=== PATIENT | female | born 1965 | race Caucasian/White ===

== ENCOUNTER 2021-10-12 06:13 | Observation (INO) | payer MEDICARE, OTHER ==
[2021-10-12] MEDS ORDERED: ANTIVERT 25 MG PO ONE (06:47)
[2021-10-12] MEDS ORDERED: ANTIVERT 25 MG ONE (06:48)
--- NOTE | 2021-10-12 06:53 | ERPHSYRPT ---
- History of Present Illness Source: patient Exam Limitations: no limitations Patient Subjective Stated Complaint: pt states for the past 4 months she has been having episodes of dizziness and vomiting. states this is the 3rd time she has been this sick. Triage Nursing Assessment: pt alert and oriented, answers questions approp. pt ambulatory with slow steady gait noted. respirations nonlabored with lungs cta. skin warm and dry. pupils equal and reactive. bilat upper and lower ext strength equal and wnl. Timing/Duration: day(s) (2 days) Severity: moderate Baseline/Normal Cognition: alert oriented x 3 Current Cognition: alert oriented x 3 Baseline Gait: walks w/o assistance Associated Symptoms: nausea, vomiting, No confusion, No fatigue, No fever, No chills, No loss of consciousness, No weakness, No insomnia, No muscle spasms, No numbness/tingling in legs/feet, No paresthesia, No ringing in ears, No seizures, No slurred speech, No trouble walking, No vision changes, No chest pain, No headache Hx Tetanus, Diphtheria Vaccination/Date Given: No Hx Influenza Vaccination/Date Given: No Hx Pneumococcal Vaccination/Date Given: No Immunizations Up to Date: No <JERMAIN ERAZO - Last Filed: 10/12/21 06:47> <AMAYA SÁNCHEZ - Last Filed: 10/12/21 22:14> - History of Present Illness Physician History: 56 yo wf w dizziness x 2 days. Pt has been having similar episodes since 06/11. She has had N/V w the dizziness. Pt denies chest pain but has been somewhat dyspneic. Otalgia/hearing loss/fever/cough/melena/hematochezia/headache are all denied. She has not seen her PCP about the problem. (JERMAIN ERAZO) Allergies/Adverse Reactions: Penicillins Allergy (Intermediate, Verified 10/12/21 06:35) Hives Home Medications: Citalopram Hydrobromide [Celexa] 40 mg PO QHS 10/12/21 [History] Ibuprofen 200 mg [Motrin 200 mg] 200 mg PO Q6HPRN PRN 10/12/21 [History] Omeprazole 40 mg PO QHS 10/12/21 [History] Travel Risk - International Travel Have you traveled outside of the country in past 3 weeks: No - Coronavirus Screening Are you exhibiting any of the following symptoms?: No Close contact with a COVID-19 positive Pt in past 14-21 Days: No - Vaccine Status Have you recieved a Covid-19 vaccination: No <JERMAIN ERAZO - Last Filed: 10/12/21 06:47> - Review of Systems Constitutional: No Symptoms Eyes: No Symptoms Ears, Nose, & Throat: No Symptoms Respiratory: No Symptoms, Dyspnea Cardiac: No Symptoms Abdominal/Gastrointestinal: No Symptoms Genitourinary Symptoms: No Symptoms Musculoskeletal: No Symptoms Skin: No Symptoms Neurological: No Symptoms, Dizziness Psychological: No Symptoms Endocrine: No Symptoms Hematologic/Lymphatic: No Symptoms Immunological/Allergic: No Symptoms <JERMAIN ERAZO - Last Filed: 10/12/21 06:47> - Past Medical History Pertinent Past Medical History: No - Past Surgical History Past Surgical History: Yes Other Surgical History: ear surgery for perfed ear drum - Social History Smoking Status: Former smoker Exposure to second hand smoke: No Drug Use: none Patient Lives Alone: No Significant Family History: no pertinent family hx <JERMAIN ERAZO - Last Filed: 10/12/21 06:47> - Marlene Coma Scale Best Eye Response (Carson): (4) open spontaneously Best Verbal Response (Marlene): (5) oriented Best Motor Response (Carson): (6) obeys commands Marlene Total: 15 - Physical Exam General Appearance: no apparent distress Eye Exam: bilateral eye: normal inspection, PERRL, EOMI Ears, Nose, Throat Exam: normal ENT inspection, pharynx normal, moist mucous membranes, TM abnormal (L) (L TM occluded by cerumen) Neck Exam: normal inspection, non-tender, supple, full range of motion, No meningismus, No mass, No Brudzinski, No Kernig's, No carotid bruit Respiratory: normal breath sounds, lungs clear, airway intact Cardiovascular: regular rate/rhythm, normal heart sounds, normal peripheral pulses, No murmur Gastrointestinal: soft, normal bowel sounds, No tenderness Back Exam: normal inspection, normal range of motion, No CVA tenderness, No vertebral tenderness Extremity Exam: normal inspection, normal range of motion Peripheral Pulses: carotid (R): 2+, carotid (L): 2+ Mental Status: alert, oriented x 3, 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 Exam: normal hearing, normal speech, PERRL Coordination/Gait: normal cerebellar function, negative Romberg's sign Motor/Sensory: no motor deficit, no sensory deficit, no pronator drift, negative Babinski's sign DTR: bicep (R): 2+, bicep (L): 2+ Skin Exam: normal color, warm, dry SpO2 Interpretation: normal SpO2: 98 O2 Delivery: Room Air <JERMAIN ERAZO - Last Filed: 10/12/21 06:47> - Nursing Vital Signs Nursing Vital Signs: Initial Vital Signs Temperature 97.3 F 10/12/21 06:21 Pulse Rate 91 H 10/12/21 06:21 Respiratory Rate 16 10/12/21 06:21 Blood Pressure 160/87 10/12/21 06:21 O2 Sat by Pulse Oximetry 98 10/12/21 06:21 Pain Scale Pain Intensity 0 - Course Nursing assessment & vital signs reviewed: Yes EKG Interpreted by Me: RATE (NSR/Rate 82/Prolonged QTc/Nonspecific Twave abnormality) <JERMAIN ERAZO - Last Filed: 10/12/21 06:47> Ordered Tests: Active Orders 24 hr Category Date Time Status Bedrest ROUTINE Activity 10/12/21 11:22 Active Up With Assistance ROUTINE Activity 10/12/21 11:22 Active Code Status Order ROUTINE Care 10/12/21 11:22 Active EKG-ER Only STAT Care 10/12/21 06:45 Completed Fall Protocol Q1H Care 10/12/21 11:22 Active IV Care Q6H Care 10/12/21 11:22 Active IV Insertion-2nd Peripheral STAT Care 10/12/21 08:43 Completed Neuro Checks Q4H Care 10/12/21 11:22 Active Orthostatic Vital Signs STAT Care 10/12/21 07:[address] in Observation ROUTINE Care 10/12/21 11:22 Active Weight,Daily 0600 Care 10/12/21 11:22 Active CHEST 1 VIEW (PORTABLE) Stat Exams 10/12/21 07:48 Taken HEAD WITHOUT CONTRAST [CT] Stat Exams 10/12/21 06:46 Completed CBC W DIFF AM.LAB Lab 10/13/21 04:00 Ordered CBC W DIFF Stat Lab 10/12/21 07:05 Completed CMP AM.LAB Lab 10/13/21 04:00 Ordered CMP Stat Lab 10/12/21 07:05 Completed FECAL OCCULT BLOOD - SCREENING Stat Lab 10/12/21 08:43 Ordered MAGNESIUM Stat Lab 10/12/21 07:05 Completed NT PRO BNP Stat Lab 10/12/21 07:05 Completed TROPONIN Q3H Lab 10/12/21 07:05 Completed TROPONIN Q3H Lab 10/12/21 08:55 Completed TROPONIN Q3H Lab 10/12/21 13:10 Completed Transfer Order Routine Transfer 10/12/21 Completed Medication Summary Generic Name Dose Route Start Last Admin Trade Name Frefide PRN Reason Stop Dose Admin Acetaminophen 650 mg 10/12/21 11:22 Acetaminophen 325 Mg Tablet PO 11/11/21 11:21 Q4H PRN PRN PAIN AND/OR FEVER Citalopram Hydrobromide 40 mg 10/12/21 22:00 10/12/21 21:32 Citalopram Hydrobromide 20 Mg Tablet PO 11/11/21 21:59 40 mg QHS EBER Administration Furosemide 20 mg 10/12/21 11:22 10/12/21 15:06 Furosemide 20 Mg/Vial IV 11/11/21 11:21 20 mg BETWEEN UNITS EBER Administration Pantoprazole Sodium 80 mg/ 500 mls @ 50 mls/hr 10/12/21 08:45 10/12/21 19:34 Sodium Chloride IV 11/11/21 08:44 50 mls/hr .Q10H EBER 50 mls/hr Administration Ondansetron HCl 4 mg 10/12/21 11:22 Ondansetron Hcl 4 Mg/2 Ml Vial IV 11/11/21 11:21 Q6H PRN PRN NAUSEA/VOMITING Pantoprazole Sodium 40 mg 10/12/21 22:00 Protonix (Pantoprazole) 40 Mg Tablet PO 11/11/21 21:59 QHS EBER Discontinued Medications Generic Name Dose Route Start Last Admin Trade Name Freq PRN Reason Stop Dose Admin Albuterol/Ipratropium 3 ml 10/12/21 11:22 Ipratropium/Albuterol Sulfate 3 Ml Ampul.Neb IH 11/11/21 11:21 Q4HPRN PRN SHORTNESS OF BREATH/WHEEZING Sodium Chloride 1,000 mls @ 999 mls/hr 10/12/21 07:48 10/12/21 09:20 Sodium Chloride 0.9% 1000 Ml IV 10/12/21 08:48 Infused .Q1H1M STA Infusion Sodium Chloride Confirm 10/12/21 07:57 Sodium Chloride 0.9% 1000 Ml Administered 10/12/21 07:58 Dose 1,000 mls @ ud .ROUTE .STK-MED ONE Sodium Chloride Confirm 10/12/21 08:50 Sodium Chloride 0.9% 500 Ml Administered 10/12/21 08:51 Dose 500 mls @ ud IV .STK-MED ONE Sodium Chloride Confirm 10/12/21 10:29 Sodium Chloride 0.9% 1000 Ml Administered 10/12/21 10:30 Dose 1,000 mls @ ud .ROUTE .STK-MED ONE Meclizine HCl 25 mg 10/12/21 06:47 10/12/21 06:48 Meclizine Hcl 25 Mg Tablet PO 10/12/21 06:48 25 mg STAT ONE Administration Meclizine HCl Confirm 10/12/21 06:48 Meclizine Hcl 25 Mg Tablet Administered 10/12/21 06:49 Dose 25 mg .ROUTE .STK-MED ONE Pantoprazole Sodium 40 mg 10/12/21 08:43 10/12/21 09:06 Pantoprazole 40 Mg Vial IV 10/12/21 08:44 40 mg STAT ONE Administration Pantoprazole Sodium Confirm 10/12/21 08:50 Pantoprazole 40 Mg Vial Administered 10/12/21 08:51 Dose 40 mg IV .STK-MED ONE Pantoprazole Sodium Confirm 10/12/21 08:55 Pantoprazole 40 Mg Vial Administered 10/12/21 08:56 Dose 40 mg IV .STK-MED ONE Pantoprazole Sodium Confirm 10/12/21 09:04 Pantoprazole 40 Mg Vial Administered 10/12/21 09:05 Dose 40 mg IV .STK-MED ONE Lab/Rad Data: Laboratory Result Diagrams 10/12/21 07:05 10/12/21 07:05 Laboratory Results 10/12/21 10/12/21 10/12/21 Range/Units 09:00 08:55 08:55 WBC (4.0-10.5) K/mm3 RBC (4.1-5.4) M/mm3 Hgb (12.0-16.0) gm/dl Hct (35-47) % MCV (78-100) fl MCH (26-32) pg MCHC (32-36) g/dl RDW (11.5-14.0) % Plt Count (150-450) K/mm3 MPV (7.5-11.0) fl Gran % (36.0-66.0) % Eos # (Auto) (0-0.5) Absolute Lymphs (auto) (1.0-4.6) Absolute Monos (auto) (0.0-1.3) Lymphocytes % (24.0-44.0) % Monocytes % (0.0-12.0) % Eosinophils % (0.00-5.0) % Basophils % (0.0-0.4) % Absolute Granulocytes (1.4-6.9) Basophils # (0-0.4) Sodium (137-145) mmol/L Potassium (3.5-5.1) mmol/L Chloride (98-107) mmol/L Carbon Dioxide (22-30) mmol/L Anion Gap (5-15) MEQ/L BUN (7-17) mg/dL Creatinine (0.52-1.04) mg/dL Estimated GFR ML/MIN Glucose (74-106) mg/dL Calcium (8.4-10.2) mg/dL Magnesium (1.6-2.3) mg/dL Total Bilirubin (0.2-1.3) mg/dL AST (14-36) U/L ALT (0-35) U/L Alkaline Phosphatase (38-126) U/L Troponin I (0.000-0.034) ng/mL NT-Pro-B Natriuret Pep (0-900) pg/mL Serum Total Protein (6.3-8.2) g/dL Albumin (3.5-5.0) g/dL Urinalys Dipstick Clnc Urine Color (YELLOW) Urine Appearance (CLEAR) Urine pH (5-6) Ur Specific [place] (1.005-1.025) POC Urine Protein Conf (Negative) Urine Ketones (NEGATIVE) Urine Nitrite (NEGATIVE) Urine Bilirubin (NEGATIVE) Urine Urobilinogen (0-1) mg/dL Urine Leukocytes (NEGATIVE) Urine WBC (Auto) (0-5) /HPF Urine RBC (Auto) (0-2) /HPF U Hyaline Cast (Auto) (0-2) /LPF U Epithel Cells (Auto) (FEW) /HPF Urine Bacteria (Auto) Urine RBC (0-5) Gama/ul Urine Mucus (Auto) (NEGATIVE) /HPF Ur Culture Indicated? Urine Glucose (NEGATIVE) mg/dL Influenza Type A Ag NEGATIVE (NEGATIVE) Influenza Type B Ag NEGATIVE (NEGATIVE) RSV (PCR) NEGATIVE (Negative) SARS-CoV-2 (PCR) NEGATIVE (NEGATIVE) Slides for Path Review ABO Group A Rh Factor POSITIVE Antibody Screen NEGATIVE (NEGATIVE) Crossmatch COMPATIBLE COMPATIBLE (COMPATIBLE) 10/12/21 10/12/21 10/12/21 Range/Units 08:55 07:05 07:05 WBC (4.0-10.5) K/mm3 RBC (4.1-5.4) M/mm3 Hgb (12.0-16.0) gm/dl Hct (35-47) % MCV (78-100) fl MCH (26-32) pg MCHC (32-36) g/dl RDW (11.5-14.0) % Plt Count (150-450) K/mm3 MPV (7.5-11.0) fl Gran % (36.0-66.0) % Eos # (Auto) (0-0.5) Absolute Lymphs (auto) (1.0-4.6) Absolute Monos (auto) (0.0-1.3) Lymphocytes % (24.0-44.0) % Monocytes % (0.0-12.0) % Eosinophils % (0.00-5.0) % Basophils % (0.0-0.4) % Absolute Granulocytes (1.4-6.9) Basophils # (0-0.4) Sodium (137-145) mmol/L Potassium (3.5-5.1) mmol/L Chloride (98-107) mmol/L Carbon Dioxide (22-30) mmol/L Anion Gap (5-15) MEQ/L BUN (7-17) mg/dL Creatinine (0.52-1.04) mg/dL Estimated GFR ML/MIN Glucose (74-106) mg/dL Calcium (8.4-10.2) mg/dL Magnesium 2.3 (1.6-2.3) mg/dL Total Bilirubin (0.2-1.3) mg/dL AST (14-36) U/L ALT (0-35) U/L Alkaline Phosphatase (38-126) U/L Troponin I < 0.012 (0.000-0.034) ng/mL NT-Pro-B Natriuret Pep 77.1 (0-900) pg/mL Serum Total Protein (6.3-8.2) g/dL Albumin (3.5-5.0) g/dL Urinalys Dipstick Clnc MAIN LAB Urine Color YELLOW (YELLOW) Urine Appearance CLEAR (CLEAR) Urine pH 5.5 (5-6) Ur Specific [place] >=1.030 (1.005-1.025) POC Urine Protein Conf 30 (Negative) Urine Ketones NEGATIVE (NEGATIVE) Urine Nitrite NEGATIVE (NEGATIVE) Urine Bilirubin NEGATIVE (NEGATIVE) Urine Urobilinogen 0.2 (0-1) mg/dL Urine Leukocytes NEGATIVE (NEGATIVE) Urine WBC (Auto) 3-5 (0-5) /HPF Urine RBC (Auto) NONE (0-2) /HPF U Hyaline Cast (Auto) 0-2 (0-2) /LPF U Epithel Cells (Auto) RARE (FEW) /HPF Urine Bacteria (Auto) Not Reportable Urine RBC NEGATIVE (0-5) Gama/ul Urine Mucus (Auto) SLIGHT (NEGATIVE) /HPF Ur Culture Indicated? NO Urine Glucose NEGATIVE (NEGATIVE) mg/dL Influenza Type A Ag (NEGATIVE) Influenza Type B Ag (NEGATIVE) RSV (PCR) (Negative) SARS-CoV-2 (PCR) (NEGATIVE) Slides for Path Review ABO Group Rh Factor Antibody Screen (NEGATIVE) Crossmatch (COMPATIBLE) 10/12/21 10/12/21 10/12/21 Range/Units 07:05 07:05 07:05 WBC 5.2 (4.0-10.5) K/mm3 RBC 3.75 L (4.1-5.4) M/mm3 Hgb 7.2 L (12.0-16.0) gm/dl Hct 26.2 L (35-47) % MCV 69.9 L (78-100) fl MCH 19.2 L (26-32) pg MCHC 27.5 L (32-36) g/dl RDW 20.8 H (11.5-14.0) % Plt Count 286 (150-450) K/mm3 MPV 9.3 (7.5-11.0) fl Gran % 69.6 H (36.0-66.0) % Eos # (Auto) 0.10 (0-0.5) Absolute Lymphs (auto) 1.08 (1.0-4.6) Absolute Monos (auto) 0.37 (0.0-1.3) Lymphocytes % 20.9 L (24.0-44.0) % Monocytes % 7.2 (0.0-12.0) % Eosinophils % 1.9 (0.00-5.0) % Basophils % 0.4 (0.0-0.4) % Absolute Granulocytes 3.60 (1.4-6.9) Basophils # 0.02 (0-0.4) Sodium 139 (137-145) mmol/L Potassium 3.9 (3.5-5.1) mmol/L Chloride 102 (98-107) mmol/L Carbon Dioxide 25 (22-30) mmol/L Anion Gap 15.4 H (5-15) MEQ/L BUN 9 (7-17) mg/dL Creatinine 0.79 (0.52-1.04) mg/dL Estimated GFR > 60.0 ML/MIN Glucose 112 H (74-106) mg/dL Calcium 8.8 (8.4-10.2) mg/dL Magnesium (1.6-2.3) mg/dL Total Bilirubin 0.30 (0.2-1.3) mg/dL AST 21 (14-36) U/L ALT 14 (0-35) U/L Alkaline Phosphatase 101 (38-126) U/L Troponin I < 0.012 (0.000-0.034) ng/mL NT-Pro-B Natriuret Pep (0-900) pg/mL Serum Total Protein 7.1 (6.3-8.2) g/dL Albumin 4.1 (3.5-5.0) g/dL Urinalys Dipstick Clnc Urine Color (YELLOW) Urine Appearance (CLEAR) Urine pH (5-6) Ur Specific [place] (1.005-1.025) POC Urine Protein Conf (Negative) Urine Ketones (NEGATIVE) Urine Nitrite (NEGATIVE) Urine Bilirubin (NEGATIVE) Urine Urobilinogen (0-1) mg/dL Urine Leukocytes (NEGATIVE) Urine WBC (Auto) (0-5) /HPF Urine RBC (Auto) (0-2) /HPF U Hyaline Cast (Auto) (0-2) /LPF U Epithel Cells (Auto) (FEW) /HPF Urine Bacteria (Auto) Urine RBC (0-5) Gama/ul Urine Mucus (Auto) (NEGATIVE) /HPF Ur Culture Indicated? Urine Glucose (NEGATIVE) mg/dL Influenza Type A Ag (NEGATIVE) Influenza Type B Ag (NEGATIVE) RSV (PCR) (Negative) SARS-CoV-2 (PCR) (NEGATIVE) Slides for Path Review YES ABO Group Rh Factor Antibody Screen (NEGATIVE) Crossmatch (COMPATIBLE) <JERMAIN ERAZO - Last Filed: 10/12/21 06:47> - Progress Progress: improved, re-examined Discussed with Dr.: Raoul Will see patient in: hospital (observation) Counseled pt/family regarding: lab results, diagnosis, rad results <AMAYA SÁNCHEZ - Last Filed: 10/12/21 22:14> - Progress Progress Note: 10/12/21 07:02 [address] turned over to Dr. Sánchez at 7:00AM (JERMAIN ERAZO) 10/12/21 08:45 neg. orthostatics, Hb 7.2 WITH NO PREVIOUS COMPARISON. GIVEN FLUIDS AND MECLIZINE WITH SOME RELIEF OF SYMPTOMS, HAS H/O GERD BUT NO MADY /HEMATOCHEZIA. CT HEAD NEGATIVE FOR ACUTE FINDINGS. EKG T WAVE CHANGES BUT NEGATIVE TROP. NO CP BUT OCCAISONAL SOB WITH ACTIVITIES. SX ARE PROBABLY SECONADR TO ANEMIA, STARTED ON PROTONIX, DISCUSSED RISK/BENIFITS OF TRANSFUSION AND SHE WANTS TO PROCEED WITH IT. 10/12/21 09:04 discuused with , recommeded surgery consult for posible EGD, continue with protonix, transfusiona nd 20mg iv lasix between the units. 10/12/21 11:[address] Leal, reviewed history and patient will be seen in consultation with hospitalist. (AMAYA SÁNCHEZ) <JERMAIN ERAZO - Last Filed: 10/12/21 06:47> - Departure Departure Disposition: Observation Critical Care Time: No <AMAYA SÁNCHEZ - Last Filed: 10/12/21 22:14> - Departure Clinical Impression: Symptomatic anemia Condition: Stable
[2021-10-12 07:14] LABS: Basophil (Absolute #) 0.02 (0-0.4); Eosinophil % 1.9 % (0.00-5.0); Hematocrit 26.2 % (35-47); Hemoglobin 7.2 gm/dl (12.0-16.0); Lymphocyte (Absolute #) 1.08 (1.0-4.6); Lymphocytes % 20.9 % (24.0-44.0); Mean Cell Volume 69.9 fl (78-100); Mean Corpuscular Hemoglobin 19.2 pg (26-32); Mean Corpuscular Hgb Concent. 27.5 g/dl (32-36); Mean Platelet Volume 9.3 fl (7.5-11.0); Monocyte (Absolute #) 0.37 (0.0-1.3); Monocytes % 7.2 % (0.0-12.0); Neutrophil % 69.6 % (36.0-66.0); Platelet Count 286 K/mm3 (150-450); Red Blood Count 3.75 M/mm3 (4.1-5.4); Red Cell Distribution Width 20.8 % (11.5-14.0); White Blood Count 5.2 K/mm3 (4.0-10.5)
[2021-10-12 07:27] LABS: ALBUMIN 4.1 g/dL (3.5-5.0); ALKALINE PHOSPHATASE 101 U/L (38-126); ANION GAP 15.4 MEQ/L (5-15); BLOOD UREA NITROGEN 9 mg/dL (7-17); CHLORIDE 102 mmol/L (98-107); Calcium 8.8 mg/dL (8.4-10.2); Carbon Dioxide 25 mmol/L (22-30); Creatinine 1 0.79 mg/dL (0.52-1.04); EST GLOMERULAR FILTRATION RATE > 60.0 ML/MIN; Glucose 112 mg/dL (74-106); Potassium 3.9 mmol/L (3.5-5.1); SGOT/AST 21 U/L (14-36); SGPT/ALT 14 U/L (0-35); SODIUM 139 mmol/L (137-145); Total Protein 7.1 g/dL (6.3-8.2)
[2021-10-12] MEDS ORDERED: Sodium Chloride 0.9% 1000 ML 1,000 ML IV STA (07:48)
[2021-10-12 07:57] LABS: Appearance CLEAR (CLEAR); Bilirubin NEGATIVE (NEGATIVE); Dipstick done @ ? MAIN LAB; Glucose NEGATIVE (NEGATIVE); Ketones NEGATIVE (NEGATIVE); Nitrite NEGATIVE (NEGATIVE); Ph 5.5 (5-6); Protein,Urine Dip 30 (Negative); RBC NEGATIVE Ery/ul (0-5); Specific Gravity >=1.030 (1.005-1.025); Urobilinogen 0.2 mg/dL (0-1)
[2021-10-12] MEDS ORDERED: Sodium Chloride 0.9% 1000 ML 1,000 ML ONE ×2 (07:57→10:29)
[2021-10-12 07:58] LABS: Epithelial Cells RARE /HPF (FEW); Hyaline Casts 0-2 /LPF (0-2); Mucus SLIGHT /HPF (NEGATIVE)
[2021-10-12 07:59] LABS: Urine Cultured Indicated? NO
[2021-10-12 08:07] LABS: MAGNESIUM 2.3 mg/dL (1.6-2.3); NT PRO BNP 77.1 pg/mL (0-900)
[2021-10-12] MEDS ORDERED: PROTONIX 40 MG IV IV ONE ×4 (08:43→09:04)
[2021-10-12] MEDS ORDERED: Sodium Chloride 0.9% 500 ML 500 ML IV ONE (08:50)
--- NOTE | 2021-10-12 08:50 | XRAY ---
Indication: Dizziness, nausea, and vomiting 2 days. Multiple contiguous axial images obtained through the head without contrast. Comparison: None Age-appropriate global atrophy with minimal periventricular degenerative microischemia bilaterally. No acute intracranial hemorrhage, abnormal extra-axial fluid collection, or mass effect. Fourth ventricle is midline without hydrocephalus. Hennessy-white matter differentiation is preserved. Bony calvarium intact. Visualized paranasal sinuses and mastoid air cells are clear. Impression: Atrophy and degenerative microischemia within normal limits for patient's age. No acute intracranial abnormalities. Comment: Preliminary interpretation made by [facility]. No critical discrepancy.
[2021-10-12] MEDS: PROTONIX 40 MG IV*** 80 MG in Sodium Chloride 0.9% 500 ML 500 ML IV SCH ×2 (08:57→19:34)
[2021-10-12 10:28] LABS: ABO TYPING A; Antibody Screen NEGATIVE (NEGATIVE); RH TYPING POSITIVE
[2021-10-12 10:29] LABS: CROSS MATCH (PRBC) COMPATIBLE (COMPATIBLE)
[2021-10-12 10:48] LABS: INFLUENZA A NEGATIVE (NEGATIVE); INFLUENZA B NEGATIVE (NEGATIVE); RESPIRATORY SYNCTIAL VIRUS NEGATIVE (Negative); SARS-CoV-2 Xpert Express NEGATIVE (NEGATIVE)
[2021-10-12] MEDS ORDERED: Zofran 4 MG/2 ML VIAL IV PRN (11:22)
[2021-10-12] MEDS ORDERED: DUONEB 0.5-3 MG/3 ml Neb IH PRN (11:22)
[2021-10-12] MEDS ORDERED: TYLENOL 325 MG PO PRN (11:22)
[2021-10-12] MEDS ORDERED: Lasix 20 MG/2 ML IV SCH (11:22)
--- NOTE | 2021-10-12 12:32 | PCM.BN ---
Brief Admission Note - Admission Note Brief Admisson Note: Patient admitted @ 10/12/21 11:21 to MED SURG.She agrees to receive 2 units PRBC Gen Surg notified of suspected UGI bleed but stable at present. I spoke to Dr Valentín Leal and since patient is stable plans outpatient evaluation. No stool for hemetest yet. Medication List reviewed and reconciled.
[2021-10-12 14:14] LABS: Slide Review 1 YES
[2021-10-12 18:49] LABS: Hematocrit 33.5 % (35-47); Hemoglobin 10.2 gm/dl (12.0-16.0)
[2021-10-12] MEDS ORDERED: NON-FORMULARY ITEM (Omeprazole [Omeprazole] 40 MG Capsule.Dr) PO SCH (22:00)
[2021-10-12] MEDS ORDERED: Protonix 40MG Tablet PO SCH (22:00)
[2021-10-12] MEDS ORDERED: NON-FORMULARY ITEM (Citalopram Hydrobromide [Celexa] 40 MG Tablet) PO SCH (22:00)
[2021-10-12] MEDS ORDERED: ceLEXa 20 MG PO SCH (22:00)
[2021-10-12 22:33] LABS: Folate (Folic Acid) 4.59 ng/mL (2.76 - >20)
[2021-10-13 05:01] VITALS: O2SAT 96
[2021-10-13 05:35] LABS: ALBUMIN 3.8 g/dL (3.5-5.0); ALKALINE PHOSPHATASE 98 U/L (38-126); ANION GAP 13.4 MEQ/L (5-15); BLOOD UREA NITROGEN 11 mg/dL (7-17); CHLORIDE 103 mmol/L (98-107); Calcium 8.3 mg/dL (8.4-10.2); Carbon Dioxide 26 mmol/L (22-30); Creatinine 1 0.86 mg/dL (0.52-1.04); EST GLOMERULAR FILTRATION RATE > 60.0 ML/MIN; Glucose 100 mg/dL (74-106); Potassium 4.2 mmol/L (3.5-5.1); SGOT/AST 22 U/L (14-36); SGPT/ALT 14 U/L (0-35); SODIUM 138 mmol/L (137-145)
[2021-10-13 05:51] LABS: Hematocrit 31.8 % (35-47); Hemoglobin 9.7 gm/dl (12.0-16.0); Mean Cell Volume 74.5 fl (78-100); Mean Corpuscular Hemoglobin 22.7 pg (26-32); Mean Corpuscular Hgb Concent. 30.5 g/dl (32-36); Mean Platelet Volume 10.9 fl (7.5-11.0); Platelet Count 194 K/mm3 (150-450); Red Blood Count 4.27 M/mm3 (4.1-5.4); Red Cell Distribution Width 23.2 % (11.5-14.0)
[2021-10-13 06:15] LABS: Eosinophil 1 % (0.00-3.0); Lymphocytes 64 % (24-44); Monocyte 1 % (0.0-12.0); Total Cells Counted 100
[2021-10-13 06:16] LABS: ANISOCYTOSIS 1+; Platelet Estimate NORMAL (NORMAL); Poikilocytosis 1+; Polychromasia 1+
[2021-10-13 08:22] VITALS: BP 113/59; PULSE 82
[2021-10-13] MEDS ORDERED: Cyanocobalamin B-12 1000 MCG/ML SQ ONE (09:03)
--- NOTE | 2021-10-13 12:17 | PCM.SSS ---
History of Present Illness - Chief Complaint Chief Complaint: symptomatic anemia History of Present Illness: is a 56 year old female patient of Dr Lynne who presented to ER with dizziness ,N/V and fatigue found to have a Hgb= 7.2. Denies abd pain or melana. Has chronic anemia but has not had GI work up. Was given iron months ago but stopped iron tabs bc GI intolerance,states only took them for a week and did not follow up. States she vomited because of the dizziness but no N/V/D or abdominal pain now. PMHx depression controlled on Citalopram and GERD taking Omeprazole daily.She was admitted to [facility] OBS and received 2 units PRBC. States dizziness had subsided and is able to walk around symptom free. BM hemetest was negative for blood. B12 was low at 186 and B12 injection was given and patient instructed to continue on B12 shots to discuss with her PCP. She will also see Dr Isabel Leal in the near future to discuss EGD and Colononoscopy. - Review of Systems Constitutional: Fatigue Eyes: No Symptoms Ears, Nose, & Throat: No Symptoms Respiratory: No Symptoms Cardiac: No Symptoms Abdominal/Gastrointestinal: Nausea, Vomiting (resolved when dizziness resolved) Genitourinary Symptoms: No Symptoms Musculoskeletal: No Symptoms Skin: No Symptoms Neurological: Dizziness, Other (no focal weakness or seizure) Psychological: Depression (mood stable on Citalopram) Endocrine: No Symptoms Hematologic/Lymphatic: Anemia Medications & Allergies Home Medications: Home Medication List Citalopram Hydrobromide [Celexa] 40 mg PO QHS 10/12/21 [History Confirmed 10/12/21] Ibuprofen 200 mg [Motrin 200 mg] 200 mg PO Q6HPRN PRN 10/12/21 [History Confirmed 10/12/21] Omeprazole 40 mg PO QHS 10/12/21 [History Confirmed 10/12/21] Allergies/Adverse Reactions: Allergies Allergy/AdvReac Type Severity Reaction Status Date / Time Penicillins Allergy Intermediate Hives Verified 10/12/21 06:35 - Past Medical History Past Medical History: Yes Neurological History: No Pertinent History ENT History: No Pertinent History Cardiac History: No Pertinent History Respiratory History: Bronchitis Endocrine Medical History: No Pertinent History Musculoskelatal History: No Pertinent History GI Medical History: No Pertinent History History: No Pertinent History Pyscho-Social History: Anxiety, Depression Reproductive Disorders: No Pertinent History - Female History Are you now?: No - Past Surgical History Past Surgical History: Yes Other Surgical History: ear surgery for perfed ear drum - Social History Smoking Status: Former smoker Exposure to second hand smoke: No Alcohol: None Drug Use: none Significant Family History: no pertinent family hx - Physical Exam Vital Signs: Vital Signs - 24 hr Temp Pulse Resp BP Pulse Ox 10/13/21 08:00 98.6 F 82 19 113/59 10/13/21 04:00 97.7 F 88 16 114/55 96 10/12/21 23:32 98.7 F 91 H 16 110/56 95 10/12/21 19:47 97.8 F 92 H 17 125/60 95 10/12/21 16:00 99 F 76 16 139/63 96 10/12/21 14:59 78 16 95 10/12/21 12:50 99.6 F 79 18 117/73 95 10/12/21 12:42 99.6 F 79 18 117/73 95 10/12/21 12:41 99.6 F 79 18 117/73 95 General Appearance: no apparent distress Neurologic Exam: alert, oriented x 3, cooperative, normal mood/affect Eye Exam: PERRL/EOMI Ears, Nose, Throat Exam: normal ENT inspection Neck Exam: normal inspection Respiratory Exam: normal breath sounds Cardiovascular Exam: regular rate/rhythm Gastrointestinal/Abdomen Exam: soft, normal bowel sounds (nontender) Pelvic Exam: not done Rectal Exam: not done Back Exam: normal inspection Extremity Exam: normal inspection Skin Exam: normal color, warm, dry Results - Labs Lab/Micro Results: Lab Results-Last 24 Hours 10/12/21 10/12/21 10/12/21 Range/Units 07:05 07:05 13:10 WBC (4.0-10.5) K/mm3 RBC (4.1-5.4) M/mm3 Hgb (12.0-16.0) gm/dl Hct (35-47) % MCV (78-100) fl MCH (26-32) pg MCHC (32-36) g/dl RDW (11.5-14.0) % Plt Count (150-450) K/mm3 MPV (7.5-11.0) fl Segmented Neutrophils (36.0-66.0) % Lymphocytes (Manual) (24-44) % Monocytes (Manual) (0.0-12.0) % Eosinophils (Manual) (0.00-3.0) % Platelet Estimate (NORMAL) RBC Morphology Polychromasia Poikilocytosis Anisocytosis Sodium (137-145) mmol/L Potassium (3.5-5.1) mmol/L Chloride (98-107) mmol/L Carbon Dioxide (22-30) mmol/L Anion Gap (5-15) MEQ/L BUN (7-17) mg/dL Creatinine (0.52-1.04) mg/dL Estimated GFR ML/MIN Glucose (74-106) mg/dL Calcium (8.4-10.2) mg/dL Total Bilirubin (0.2-1.3) mg/dL AST (14-36) U/L ALT (0-35) U/L Alkaline Phosphatase (38-126) U/L Troponin I < 0.012 (0.000-0.034) ng/mL Serum Total Protein (6.3-8.2) g/dL Albumin (3.5-5.0) g/dL Vitamin B12 186 L (239-931) pg/mL Folic Acid 4.59 (2.76 - >20) ng/mL Stool Occult Blood (NEGATIVE) Slides for Path Review YES 10/12/21 10/12/21 10/13/21 Range/Units 18:46 23:16 04:40 WBC 5.0 (4.0-10.5) K/mm3 RBC 4.27 (4.1-5.4) M/mm3 Hgb 10.2 L D 9.7 L (12.0-16.0) gm/dl Hct 33.5 L 31.8 L (35-47) % MCV 74.5 L D (78-100) fl MCH 22.7 L (26-32) pg MCHC 30.5 L (32-36) g/dl RDW 23.2 H (11.5-14.0) % Plt Count 194 (150-450) K/mm3 MPV 10.9 (7.5-11.0) fl Segmented Neutrophils 34 L (36.0-66.0) % Lymphocytes (Manual) 64 H (24-44) % Monocytes (Manual) 1 (0.0-12.0) % Eosinophils (Manual) 1 (0.00-3.0) % Platelet Estimate NORMAL (NORMAL) RBC Morphology ABNORMAL Polychromasia 1+ Poikilocytosis 1+ Anisocytosis 1+ Sodium (137-145) mmol/L Potassium (3.5-5.1) mmol/L Chloride (98-107) mmol/L Carbon Dioxide (22-30) mmol/L Anion Gap (5-15) MEQ/L BUN (7-17) mg/dL Creatinine (0.52-1.04) mg/dL Estimated GFR ML/MIN Glucose (74-106) mg/dL Calcium (8.4-10.2) mg/dL Total Bilirubin (0.2-1.3) mg/dL AST (14-36) U/L ALT (0-35) U/L Alkaline Phosphatase (38-126) U/L Troponin I (0.000-0.034) ng/mL Serum Total Protein (6.3-8.2) g/dL Albumin (3.5-5.0) g/dL Vitamin B12 (239-931) pg/mL Folic Acid (2.76 - >20) ng/mL Stool Occult Blood NEGATIVE (NEGATIVE) Slides for Path Review 10/13/21 Range/Units 04:40 WBC (4.0-10.5) K/mm3 RBC (4.1-5.4) M/mm3 Hgb (12.0-16.0) gm/dl Hct (35-47) % MCV (78-100) fl MCH (26-32) pg MCHC (32-36) g/dl RDW (11.5-14.0) % Plt Count (150-450) K/mm3 MPV (7.5-11.0) fl Segmented Neutrophils (36.0-66.0) % Lymphocytes (Manual) (24-44) % Monocytes (Manual) (0.0-12.0) % Eosinophils (Manual) (0.00-3.0) % Platelet Estimate (NORMAL) RBC Morphology Polychromasia Poikilocytosis Anisocytosis Sodium 138 (137-145) mmol/L Potassium 4.2 (3.5-5.1) mmol/L Chloride 103 (98-107) mmol/L Carbon Dioxide 26 (22-30) mmol/L Anion Gap 13.4 (5-15) MEQ/L BUN 11 (7-17) mg/dL Creatinine 0.86 (0.52-1.04) mg/dL Estimated GFR > 60.0 ML/MIN Glucose 100 (74-106) mg/dL Calcium 8.3 L (8.4-10.2) mg/dL Total Bilirubin 0.50 (0.2-1.3) mg/dL AST 22 (14-36) U/L ALT 14 (0-35) U/L Alkaline Phosphatase 98 (38-126) U/L Troponin I (0.000-0.034) ng/mL Serum Total Protein 7.0 (6.3-8.2) g/dL Albumin 3.8 (3.5-5.0) g/dL Vitamin B12 (239-931) pg/mL Folic Acid (2.76 - >20) ng/mL Stool Occult Blood (NEGATIVE) Slides for Path Review - Radiology Impressions Radiology Exams & Impressions: Radiology Procedures Category Date Time Status CHEST 1 VIEW (PORTABLE) Stat Exams 10/12/21 07:48 Taken HEAD WITHOUT CONTRAST [CT] Stat Exams 10/12/21 06:46 Completed Assessment/Plan (1) Symptomatic anemia Current Visit: Yes Status: Acute Assessment & Plan: Hgb=7.2 ,received 2units PRBC and feeling much stronged no further dizziness Code(s): D64.9 - ANEMIA, UNSPECIFIED (2) B12 deficiency anemia Current Visit: Yes Status: Acute Qualifiers: Vitamin B12 deficiency anemia type: unspecified B12 deficiency Qualified Code(s): D51.9 - Vitamin B12 deficiency anemia, unspecified Assessment & Plan: B12 2,000 IU given before discharge,continue B12 per PCP upon discharge Code(s): D51.9 - VITAMIN B12 DEFICIENCY ANEMIA, UNSPECIFIED (3) Depressed Current Visit: Yes Status: Chronic Qualifiers: Major depression episode severity: mild Assessment & Plan: controlled on med Code(s): F32.A - DEPRESSION, UNSPECIFIED (4) GERD (gastroesophageal reflux disease) Current Visit: Yes Status: Chronic Qualifiers: Esophagitis presence: esophagitis presence not specified Qualified Code(s): K21.9 - Gastro-esophageal reflux disease without esophagitis Assessment & Plan: will continue on Omeprazole. Heme test stool was negative. Will see DR Lian Leal re scopes. Code(s): K21.9 - GASTRO-ESOPHAGEAL REFLUX DISEASE WITHOUT ESOPHAGITIS Hospital Summary - Hospital Course Hospital Course: See discussion under HPI. Hgb on admission was 7.2,post 2 units PRBC was 10.2,on discharge was 9.7. No abd pain or discomfort ,stool normal colr and heme neg. B12 injection given and ptn is safe to discharge home with . - Vitals & Intake/Output Vital Signs: Vital Signs Temperature 98.6 F 10/13/21 08:00 Pulse Rate 82 10/13/21 08:00 Respiratory Rate 19 10/13/21 08:00 Blood Pressure 113/59 10/13/21 08:00 O2 Sat by Pulse Oximetry 96 10/13/21 04:00 Intake & Output: Intake & Output 10/11/21 10/12/21 10/13/21 10/14/21 11:59 11:59 11:59 11:59 Intake Total 3870 Output Total 0 Balance 3870 Weight 93.2 kg 95 kg - Lab Result Diagrams: 10/13/21 04:40 10/13/21 04:40 Lab Results-Last 24 Hrs: Lab Results-Last 24 Hours 10/12/21 10/12/21 10/12/21 Range/Units 07:05 07:05 13:10 WBC (4.0-10.5) K/mm3 RBC (4.1-5.4) M/mm3 Hgb (12.0-16.0) gm/dl Hct (35-47) % MCV (78-100) fl MCH (26-32) pg MCHC (32-36) g/dl RDW (11.5-14.0) % Plt Count (150-450) K/mm3 MPV (7.5-11.0) fl Segmented Neutrophils (36.0-66.0) % Lymphocytes (Manual) (24-44) % Monocytes (Manual) (0.0-12.0) % Eosinophils (Manual) (0.00-3.0) % Platelet Estimate (NORMAL) RBC Morphology Polychromasia Poikilocytosis Anisocytosis Sodium (137-145) mmol/L Potassium (3.5-5.1) mmol/L Chloride (98-107) mmol/L Carbon Dioxide (22-30) mmol/L Anion Gap (5-15) MEQ/L BUN (7-17) mg/dL Creatinine (0.52-1.04) mg/dL Estimated GFR ML/MIN Glucose (74-106) mg/dL Calcium (8.4-10.2) mg/dL Total Bilirubin (0.2-1.3) mg/dL AST (14-36) U/L ALT (0-35) U/L Alkaline Phosphatase (38-126) U/L Troponin I < 0.012 (0.000-0.034) ng/mL Serum Total Protein (6.3-8.2) g/dL Albumin (3.5-5.0) g/dL Vitamin B12 186 L (239-931) pg/mL Folic Acid 4.59 (2.76 - >20) ng/mL Stool Occult Blood (NEGATIVE) Slides for Path Review YES 10/12/21 10/12/21 10/13/21 Range/Units 18:46 23:16 04:40 WBC 5.0 (4.0-10.5) K/mm3 RBC 4.27 (4.1-5.4) M/mm3 Hgb 10.2 L D 9.7 L (12.0-16.0) gm/dl Hct 33.5 L 31.8 L (35-47) % MCV 74.5 L D (78-100) fl MCH 22.7 L (26-32) pg MCHC 30.5 L (32-36) g/dl RDW 23.2 H (11.5-14.0) % Plt Count 194 (150-450) K/mm3 MPV 10.9 (7.5-11.0) fl Segmented Neutrophils 34 L (36.0-66.0) % Lymphocytes (Manual) 64 H (24-44) % Monocytes (Manual) 1 (0.0-12.0) % Eosinophils (Manual) 1 (0.00-3.0) % Platelet Estimate NORMAL (NORMAL) RBC Morphology ABNORMAL Polychromasia 1+ Poikilocytosis 1+ Anisocytosis 1+ Sodium (137-145) mmol/L Potassium (3.5-5.1) mmol/L Chloride (98-107) mmol/L Carbon Dioxide (22-30) mmol/L Anion Gap (5-15) MEQ/L BUN (7-17) mg/dL Creatinine (0.52-1.04) mg/dL Estimated GFR ML/MIN Glucose (74-106) mg/dL Calcium (8.4-10.2) mg/dL Total Bilirubin (0.2-1.3) mg/dL AST (14-36) U/L ALT (0-35) U/L Alkaline Phosphatase (38-126) U/L Troponin I (0.000-0.034) ng/mL Serum Total Protein (6.3-8.2) g/dL Albumin (3.5-5.0) g/dL Vitamin B12 (239-931) pg/mL Folic Acid (2.76 - >20) ng/mL Stool Occult Blood NEGATIVE (NEGATIVE) Slides for Path Review 10/13/21 Range/Units 04:40 WBC (4.0-10.5) K/mm3 RBC (4.1-5.4) M/mm3 Hgb (12.0-16.0) gm/dl Hct (35-47) % MCV (78-100) fl MCH (26-32) pg MCHC (32-36) g/dl RDW (11.5-14.0) % Plt Count (150-450) K/mm3 MPV (7.5-11.0) fl Segmented Neutrophils (36.0-66.0) % Lymphocytes (Manual) (24-44) % Monocytes (Manual) (0.0-12.0) % Eosinophils (Manual) (0.00-3.0) % Platelet Estimate (NORMAL) RBC Morphology Polychromasia Poikilocytosis Anisocytosis Sodium 138 (137-145) mmol/L Potassium 4.2 (3.5-5.1) mmol/L Chloride 103 (98-107) mmol/L Carbon Dioxide 26 (22-30) mmol/L Anion Gap 13.4 (5-15) MEQ/L BUN 11 (7-17) mg/dL Creatinine 0.86 (0.52-1.04) mg/dL Estimated GFR > 60.0 ML/MIN Glucose 100 (74-106) mg/dL Calcium 8.3 L (8.4-10.2) mg/dL Total Bilirubin 0.50 (0.2-1.3) mg/dL AST 22 (14-36) U/L ALT 14 (0-35) U/L Alkaline Phosphatase 98 (38-126) U/L Troponin I (0.000-0.034) ng/mL Serum Total Protein 7.0 (6.3-8.2) g/dL Albumin 3.8 (3.5-5.0) g/dL Vitamin B12 (239-931) pg/mL Folic Acid (2.76 - >20) ng/mL Stool Occult Blood (NEGATIVE) Slides for Path Review - Radiology Exams Ordered Rad Exams-Entire Visit: Radiology Procedures Category Date Time Status CHEST 1 VIEW (PORTABLE) Stat Exams 10/12/21 07:48 Taken HEAD WITHOUT CONTRAST [CT] Stat Exams 10/12/21 06:46 Completed - Procedures and Test Procedures and Tests throughout Hospitalization: Therapy Orders & Screens 10/12/21 14:59 Respiratory Therapy Assessment ONCE Comment: Diagnosis: symptomatic anemia - Discharge Disposition: Home, Self-Care Condition: Stable Prescriptions: No Action Omeprazole 40 mg PO QHS Citalopram Hydrobromide [Celexa] 40 mg PO QHS Ibuprofen 200 mg [Motrin 200 mg] 200 mg PO Q6HPRN PRN PRN Reason: Pain And/Or Fever Instructions: Anemia of Chronic Disease, Vitamin B12 Deficiency (DC) Additional Instructions: FOLLOW UP WITH PRIMARY CARE PHYSICIAN FOR ROUTINE VITAMIN B12 INJECTIONS AND LAB WORK. SCHEDULE APPT WITH ISABEL LEAL FOR EGD AND COLONOSCOPY. Follow up with: ISABEL LEAL MD [ACTIVE STAFF] - Call for Appointment TOMA LYNNE MD [Primary Care Provider] - Call for Appointment Forms: Discharge Instructions
--- NOTE | 2021-10-14 07:17 | XRAY ---
Indication: Dyspnea. Comparison: November 13, 2010. Portable chest again demonstrates normal heart and lungs with a few incidental tiny calcified granulomas. New moderate sized hiatal hernia suggested. Bony thorax intact with mild osteopenia and degenerative changes. Impression: Continued nonacute chest with chronic features including new hiatal hernia.
== END 2021-10-13 12:15 | disposition home or self-care (01) ==
LOC: ED 06:13 → MED SURG 11:21
PROVIDERS: ADMIT Family Medicine; ATTEND General Practice
DX: D64.9 Anemia, unspecified (principal); D51.9 Vitamin B12 deficiency anemia, unspecified; F32.A Depression, unspecified; K21.9 Gastro-esophageal reflux disease without esophagitis; Z79.899 Other long term (current) drug therapy
CPT/HCPCS: 0241U; 36000; 36415; 36430; 70450; 71045; 80053; 81015; 82274; 82607; 82746; 83735; 83880; 84484; 85014; 85018; 85025; 86850; 86900; 86901; 86922; 93005; 93268; 96360; 96374; 96375; 99284; G0378; P9016; J1940; J3420; A9270-GY; G0328

== ENCOUNTER 2023-09-11 16:05 | Emergency (ER) | payer OTHER ==
--- NOTE | 2023-09-11 16:39 | ERPHSYRPT ---
- History of Present Illness Time Seen by Provider: 09/11/23 16:38 Source: patient Exam Limitations: no limitations Physician History: This is an obese white female who is 58 years of age and is a patient of Dr. Lynne and is a former smoker of cigarettes and presents with new onset of cough and redness in her eyes. She also has sore throat. And she has left lower back pain. She states that she cannot get the coughing to stop once it starts. She also states that she did not start having the left lower back pain until she started having multiple episodes of forceful coughing each day for several days. In the last week to 2 weeks she has been evaluated by her primary care physician's office, urgent care and [facility] emergency department. Every time, they performed viral swabs that were negative. She had a monotest that was negative. She has never had a chest x-ray performed. Patient received long-acting steroid injection a few days ago from the emergency department [facility]. In addition, she received an injection of long-acting steroids from her primary care physician's office yesterday. Patient states that she has had similar episodes of bronchitis in the past. Looks different today is the forcefulness of her cough as well it lasting several days. Timing/Duration: week(s) (Approximately 1 to 2 weeks), worse (Symptoms worse today) Cough Quality/Degree: moderate, dry cough Possible Cause: occasional episodes Modifying Factors: Improves With: coughing Associated Symptoms: cough, sore throat, No chest pain/soreness Allergies/Adverse Reactions: Penicillins Allergy (Intermediate, Verified 09/11/23 16:53) Hives Home Medications: Citalopram Hydrobromide [Celexa] 40 mg PO QHS 10/12/21 [History] Omeprazole 40 mg PO QHS 10/12/21 [History] Atorvastatin Calcium 20 mg PO DAILY 09/11/23 [History] Famotidine 20 mg [Pepcid 20 MG] 20 mg PO DAILY 09/11/23 [History] Ferrous Sulfate 325 mg [Feosol 325 mg] 325 mg PO DAILY 09/11/23 [History] Hx Tetanus, Diphtheria Vaccination/Date Given: No Hx Influenza Vaccination/Date Given: No Hx Pneumococcal Vaccination/Date Given: No Travel Risk - International Travel Have you traveled outside of the country in past 3 weeks: No - Emerging Infectious Disease Are you exhibiting symptoms associated with any current EIDs: Yes Symptoms: Cough: New Onset - Vaccine Status Hx Covid Vaccintation/Booster/Date Given: No - Review of Systems Constitutional: No Symptoms Eyes: No Symptoms Ears, Nose, & Throat: Throat Pain Respiratory: Cough Cardiac: No Symptoms Abdominal/Gastrointestinal: No Symptoms Genitourinary Symptoms: No Symptoms Musculoskeletal: Back Pain (Secondary to coughing left lower back) Skin: No Symptoms Neurological: No Symptoms Psychological: No Symptoms Endocrine: No Symptoms Hematologic/Lymphatic: No Symptoms Immunological/Allergic: No Symptoms All Other Systems: Reviewed and Negative - Past Medical History Pertinent Past Medical History: Yes Neurological History: No Pertinent History ENT History: No Pertinent History Cardiac History: No Pertinent History Respiratory History: Bronchitis Endocrine Medical History: No Pertinent History Musculoskeletal History: No Pertinent History GI Medical History: No Pertinent History History: No Pertinent History Psycho-Social History: Anxiety, Depression Female Reproductive Disorders: No Pertinent History - Past Surgical History Past Surgical History: Yes Other Surgical History: ear surgery for perfed ear drum Significant Family History: no pertinent family hx - Social History Smoking Status: Former smoker Exposure to second hand smoke: No Drug Use: none Patient Lives Alone: No - Nursing Vital Signs Nursing Vital Signs: Initial Vital Signs Temperature 98.3 F 09/11/23 16:34 Pulse Rate 84 09/11/23 16:34 Blood Pressure 150/78 09/11/23 16:34 O2 Sat by Pulse Oximetry 95 09/11/23 16:34 Pain Scale Pain Intensity 7 - Physical Exam General Appearance: no apparent distress, alert, anxiety, obese Eye Exam: PERRL/EOMI Ears, Nose, Throat Exam: normal ENT inspection, moist mucous membranes Neck Exam: normal inspection, non-tender, supple, full range of motion Respiratory Exam: normal breath sounds, lungs clear, airway intact, No chest tenderness, No respiratory distress Cardiovascular Exam: regular rate/rhythm, normal heart sounds, normal peripheral pulses Gastrointestinal/Abdomen Exam: soft, normal bowel sounds, No tenderness Pelvic Exam: not done Rectal Exam: not done Back Exam: normal inspection, normal range of motion, No CVA tenderness, No vertebral tenderness Extremity Exam: normal inspection, normal range of motion, pelvis stable Neurologic Exam: alert, oriented x 3, cooperative, 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, normal mood/affect, nml cerebellar function, nml station & gait, sensation nml Skin Exam: normal color, warm, dry Lymphatic Exam: No adenopathy SpO2 Interpretation: normal O2 Delivery: Room Air - Course Nursing assessment & vital signs reviewed: Yes Ordered Tests: Active Orders 24 hr Category Date Time Status CHEST 1 VIEW (PORTABLE) Stat Exams 09/11/23 17:27 Taken Medication Summary Discontinued Medications Generic Name Dose Route Start Last Admin Trade Name Shilpa PRN Reason Stop Dose Admin Hydrocodone Bitart/Acetaminophen 15 ml 09/11/23 17:24 09/11/23 17:39 Hydrocodone/Acetaminophen 5 Ml Udcup PO 09/11/23 17:25 15 ml STAT STA Administration Hydrocodone Bitart/Acetaminophen Confirm 09/11/23 17:32 Hydrocodone/Acetaminophen 5 Ml Udcup Administered 09/11/23 17:33 Dose 15 ml .ROUTE .STK-MED ONE Diphenhydramine HCl 25 mg 09/11/23 17:25 09/11/23 17:41 Diphenhydramine Hcl 50 Mg/Ml Vial IM 09/11/23 17:26 25 mg STAT ONE Administration Diphenhydramine HCl Confirm 09/11/23 17:32 Diphenhydramine Hcl 50 Mg/Ml Vial Administered 09/11/23 17:33 Dose 50 mg .ROUTE .STK-MED ONE Ketorolac Tromethamine 60 mg 09/11/23 17:25 09/11/23 17:40 Ketorolac Tromethamine 30 Mg/Ml Inj IM 09/11/23 17:26 60 mg STAT ONE Administration Ketorolac Tromethamine Confirm 09/11/23 17:32 Ketorolac Tromethamine 30 Mg/Ml Inj Administered 09/11/23 17:33 Dose 30 mg .ROUTE .STK-MED ONE Ketorolac Tromethamine Confirm 09/11/23 17:40 Ketorolac Tromethamine 30 Mg/Ml Inj Administered 09/11/23 17:41 Dose 30 mg .ROUTE .STK-MED ONE Morphine Sulfate 2 mg 09/11/23 17:25 09/11/23 17:42 Morphine Sulfate 2 Mg/Ml Inj IM 09/11/23 17:26 2 mg STAT ONE Administration Morphine Sulfate Confirm 09/11/23 17:32 Morphine Sulfate 2 Mg/Ml Inj Administered 09/11/23 17:33 Dose 2 mg .ROUTE .STK-MED ONE Ondansetron HCl 4 mg 09/11/23 17:26 09/11/23 17:39 Zofran 4 Mg/Udtablet Orally Disintegrating PO 09/11/23 17:27 4 mg STAT ONE Administration Ondansetron HCl Confirm 09/11/23 17:32 Zofran 4 Mg/Udtablet Orally Disintegrating Administered 09/11/23 17:33 Dose 4 mg .ROUTE .STK-MED ONE - Progress Progress: improved Air Movement: good Progress Note: 09/11/23 18:02 This patient's medical issue is 1 of low complexity. The level of complexity in the workup performed is based on review the patient's past medical history, review of the patient's medication list, review of patient drug allergy list, physical findings on physical examination and history of present illness. Workup in this patient clued chest x-ray, providing the patient with hydrocodone elixir to help with sore throat and cough suppression, injection of low-dose morphine, nonsteroidal anti-inflammatory drug and Benadryl to help with her conjunctivitis and back pain. 09/11/23 18:16 The chest x-ray was interpreted by me. I do not see a definite infiltrate although there is maybe a slight haziness versus atelectasis in the right lower lung base. This patient's symptoms have been persistent. My plan is to provide the patient with symptomatic relief of her sore throat and cough by providing her outpatient prescription remotely sent to her pharmacy for hydrocodone elixir. In addition I will send her a Z-Russell remotely to her pharmacy as well as albuterol inhaler. She is to follow-up with her primary care provider on , 09/14/2023. I am holding off on remotely sending a prescription of steroids to her pharmacy since she just received an injection of long-acting steroids. 09/11/23 18:17 Blood Culture(s) Obtained: No Antibiotics given: No Counseled pt/family regarding: diagnosis, need for follow-up, rad results Medical Desision Making - Independent Historian Additional History obtained from: Spouse - Diagnostic Testing Diagnostic test were ordered, analyzed, and reviewed by me: Yes Radiological Interpretation: Interpreted by me - Risk of complications The pt has a mod risk of morbidity or mortality based on: Need for prescription drug management - Departure Departure Disposition: Home Clinical Impression: Upper respiratory infection Condition: Stable Critical Care Time: No Referrals: TOMA LYNNE MD [Primary Care Provider] - Follow up/PCP as directed Additional Instructions: Plenty of fluids. Take your medications as prescribed. Call your primary care provider on 09/14/2023 to make a follow-up appoint in the next 3 to 5 days. Prescriptions: Hydrocodone/Acetaminophen [Hydrocodone-Acetamn 7.5-325/15] 10 ml PO Q8H PRN #120 ml MDD 30 ml PRN Reason: Cough Albuterol 8 gm Mdi Hfa [Ventolin Hfa MDI] 8 gm IH Q4H #1 unit Azithromycin 250 mg [Zithromax 250 MG TABLET] 250 mg PO ZPACK #6 tablet
[2023-09-11 16:53] VITALS: PULSE 84; TEMP 98.3
[2023-09-11] MEDS ORDERED: HYDROCODONE-ACETAMIN 2.5-108/5 ML SOLUTION ONE (17:32)
[2023-09-11] MEDS ORDERED: TORAdol 30 mg Injection ONE ×2 (17:32→17:40)
[2023-09-11] MEDS ORDERED: BENADRYL 50 MG/ML ONE (17:32)
[2023-09-11] MEDS ORDERED: MORPHINE SULFATE 2 MG INJ ONE (17:32)
[2023-09-11] MEDS ORDERED: ZOFRAN ODT 4 MG ONE (17:32)
[2023-09-11] MEDS: HYDROCODONE-ACETAMIN 2.5-108/5 ML SOLUTION PO STA (17:39)
[2023-09-11] MEDS: ZOFRAN ODT 4 MG PO ONE (17:39)
[2023-09-11] MEDS: TORAdol 30 mg Injection IM ONE (17:40)
[2023-09-11] MEDS: BENADRYL 50 MG/ML IM ONE (17:41)
[2023-09-11] MEDS: MORPHINE SULFATE 2 MG INJ IM ONE (17:42)
[2023-09-11 18:22] VITALS: BP 146/95; O2SAT 93
--- NOTE | 2023-09-11 20:26 | XRAY ---
Indication: Cough. Comparison: October 12, 2021 Portable chest remains clear again with incidental tiny calcified granulomas. Heart not enlarged again with moderate size hiatal hernia. Bony thorax intact again with osteopenia and mild degenerative changes. Impression: Continued nonacute chest with chronic features.
== END 2023-09-11 18:30 | disposition home or self-care (01) ==
LOC: ED 16:05
DX: J06.9 Acute upper respiratory infection, unspecified (principal); R05.1 Acute cough; M54.50 Low back pain, unspecified; Z79.899 Other long term (current) drug therapy; Z28.310 Unvaccinated for COVID-19
CPT/HCPCS: 71045; 96372; 99284; J1200; J1885; J2270; Q0162; A9270-GY